=== PATIENT | female | born 1970 | race Caucasian/White ===

== ENCOUNTER 2016-11-08 11:54 | Emergency (ER) | payer OTHER ==
[~2016-11-08] VITALS: Ht 158.8 cm; Wt 129.3 kg
[~2016-11-08 11:54] MED LIST: ACET-171 PO; ARIP5TAB5 PO; CEFT2PIG IV; FUR20 PO; HYOS0.1216 PO; RIVA20TA PO
[2016-11-08 12:11] VITALS: BP 148/79; PULSE 68; O2SAT 97
--- NOTE | 2016-11-08 12:52 | ED.REPORT ---
HPI-Abd Pain F 40 and Over Date of Service Nov 08, 2016 ED Provider: Drake Aguayo MD Patient is a 46 year old female who presents to the ED Complaining of abdominal pain that has been worsening over the past few days. Associated symptoms include severe diarrhea (one month), nausea, weakness, and fatigue. She reports that there was a small amount of blood in her stool the other day but it has since resolved. She denies fever, vomiting, or any other symptoms. She had been taking 2-4 over the counter tablets for diarrhea every 6-8 hours with no relief. Patient is supposed to take potassium supplements but she has not been able to keep food down and therefore cannot take her supplements. She was recently taken off of her blood pressure medication because her potassium was so low ( down to 2 last week). Her medications include Xarelto, ranitidine, lamotrigine, and a dieretic. Nursing Notes Stated Complaint: STOMACH PAIN/WEAK/DIARRHEA Chief Complaint: Female Abdominal Pain Nursing Notes Reviewed: Yes ([employer] not reconciled - EMR indicates Xarelto use in past) Allergies: Coded Allergies: amoxicillin (Verified Allergy, Severe, hives, 11/08/16) Sulfa (Sulfonamide Antibiotics) (Verified Allergy, Intermediate, Hives, ) Scheduled Aripiprazole (Abilify) 5 Mg Tablet 5 MG PO DAILY Ceftriaxone Na/Dextrose,Iso (Ceftriaxone 2 gm-D5w Bag) 2 Gm/50 Ml Piggyback 2 GM IV DAILY Furosemide (Furosemide) 20 Mg Tab 20 MG PO DAILY Potassium Chloride (Potassium Chloride) 20 Meq/15 Ml Liquid 20 MEQ PO DAILY Rivaroxaban (Xarelto) 20 Mg Tablet 20 MG PO DAILY Scheduled PRN Acetaminophen (Acetaminophen) 500 Mg Tablet 1-2 TABLET PO Q6-8H PRN PRN For Pain Hyoscyamine (Hyoscyamine) 0.125 Mg Tablet 0.125 MG PO Q4H PRN PRN Abdominal pain Ondansetron ODT (Ondansetron ODT) 8 Mg Tab.rapdis 8 MG PO Q4H PRN PRN For Nausea General Time Seen by MD: 12:47 Chief Complaint Abdominal pain Hx Obtained From: Patient Arrived By: Walk-in Sudden in Onset?: Yes Onset Occurred: 3 days ago Symptom Duration: Since onset Risk Factors )( AAA Risk Stratification Hypertension Risk factors reviewed Past Medical History Past Medical History 1. Bipolar disorder. 2. Hypertension. 3. Chronic edema. 4. Obesity. 5. Irritable bowel syndrome with chronic diarrhea. 6. Polycystic ovary disease. 7. Chronic low back pain. 8. Factor five Leiden deficiency. Past Surgical History Reports: Cholecystectomy, Hysterectomy Reports: Back/neck surgery Family History noncontributory Smoking History Unknown if Ever Smoker Social History Drug Use: Denies drug use Ambulatory Status Independent Review of Systems Constitutional: Reports: Fatigue, Weakness - generalized, Denies: Fever GI: Reports: Abdominal pain, Diarrhea, Nausea, Denies: Vomiting Complete sys rev & neg: except as marked. Physical Exam Vital Signs Vital Signs (First) Date Time Temp Pulse Resp B/P Pulse Ox O2 Delivery O2 Flow Rate FiO2 11/08/16 12:11 36.3 68 148/79 97 Room Air Initial VS: Reviewed, Vital signs normal Head / Eyes: Atraumatic, Normocephalic Neck: Full range of motion Skin: Warm, Dry Neurologic: Alert, Oriented, Nonfocal Psychiatric: Mood/affect normal, Behavior normal, Normal thought content General/Constitutional: Awake, No acute distress, Well appearing, Well developed Appearance / Presentation: Positive: Obese Fatigued Respiratory / Chest: Atraumatic, Breath sounds NL, Breath sounds = bilat, No respiratory distress Cardiovascular: Heart rate NL, Regular rhythm, Heart sounds NL Abdomen: Soft, Non-tender Back: Inspection NL Interpretation & Diagnostics urine preg neg Lab Results Interpretation Result Diagram: 11/08/16 0122 11/08/16 0122 Test 11/08/16 01:22 11/08/16 13:18 11/08/16 14:07 White Blood Count 7.1th/mm3 (3.8-10.1) Red Blood Count 4.22mil/mm3 (3.90-5.20) Hemoglobin 10.9g/dL (12.0-15.6) Hematocrit 34.5% (35.0-46.0) Mean Corpuscular Volume 81.8fL (81-100) Mean Corpuscular Hemoglobin 25.8pg (27.0-35.0) Mean Corpuscular Hemoglobin Concent 31.6% (32.0-37.0) Red Cell Distribution Width 14.9% (12.3-15.4) Platelet Count 292bil/L (150-400) Neutrophils (%) (Auto) 64.2% (40-74) Lymphocytes (%) (Auto) 26.1% (14-46) Monocytes (%) (Auto) 8.4% (4-12) Eosinophils (%) (Auto) 1.1% (0-5) Basophils (%) (Auto) 0.1% (0-3) Sodium Level 141mEq/L (134-144) Potassium Level 3.1mEq/L (3.5-5.2) Chloride Level 103mEq/L (97-108) Carbon Dioxide Level 26mmol/L (18-29) Blood Urea Nitrogen 10mg/dL (6-24) Creatinine 0.75mg/dL (0.57-1.00) Estimat Glomerular Filtration Rate 119mL/min (>59) Glucose Level 104mg/dL (60-99) Calcium Level 8.5mg/dL (8.5-10.1) Magnesium Level 2.1mg/dL (1.6-2.6) Total Bilirubin 0.3mg/dL (0.0-1.2) Aspartate Amino Transf (AST/SGOT) 44U/L (0-50) Alanine Aminotransferase (ALT/SGPT) 32U/L (0-32) Alkaline Phosphatase 136U/L (25-150) Total Protein 7.4g/dL (6.4-8.4) Albumin 3.5g/dL (3.4-5.0) Lipase 19U/L (13-60) Lactic Acid Level 0.9mmol/L (0.4-2.0) Urine Color Yellow (YELLOW) Urine Appearance Clear (CLEAR,HAZY) Urine pH 6.0 (5.0-8.0) Urine Specific [place] 1.015 (1.003-1.035) Urine Protein Negativemg/dL (NEG,TRACE) Urine Glucose (UA) Negativemg/dL (NEGATIVE) Urine Ketones Negativemg/dL (NEGATIVE) Urine Occult Blood Negative (NEGATIVE) Urine Nitrite Negative (NEGATIVE) Urine Bilirubin Negative (NEGATIVE) Urine Urobilinogen Normalmg/dL (NORMAL) Urine Leukocyte Esterase Negative (NEGATIVE) Urine RBC 0-2/hpf (0-2) Urine WBC 0-5/hpf (0-5) Urine Epithelial Cells Moderate/hpf (NONE-MOD) Urine Crystals None seen (NONE SEEN) Urine Bacteria None/hpf (NONE-FEW) Urine Hyaline Casts None/lpf (NONE) Urine Granular Casts None seen (NONE SEEN) Urine Waxy Casts None seen (NONE SEEN) Urine Red Blood Cell Casts None seen (NONE SEEN) Urine White Blood Cell Casts None seen (NONE SEEN) Urine Mucus None seen (None Seen) Urine Trichomonas None seen (NONE SEEN) Urine Yeast None (NONE SEEN) Urinalysis Comment None Urine Culture Reflexed Not indicated Lab Results Interpretation: CBC normal CMP mildly low potassium, but not severely so Stool panel ordered ECG Interpretation ECG Interpretation: flat t waves anteriorly consistent with hypokalemia sinus rate 60 Time: 13:14 Interpreted by: ED physician Re-Eval/Medical Decision Med Decision/Clinical Course This is a 46-year-old female with chronic IBS and has had chronic problems with diarrhea, reports marked and atypical worsening over the past month. The past week she has had fairly severe near continuous diarrhea despite aggressive loperamide, and she has had ongoing nausea without vomiting. Because of the nausea she has not been able to take the potassium supplements which is often required because she has ongoing GI losses and occasionally gets severely hypokalemic. She reports in recent weeks she had potassium as low as 2, and with her worsening diarrhea, inability to take by mouth, inability to take her potassium and now feeling increasingly weak-she comes in very concerned that she may be severely hypokalemic again. Denies abdominal pain. She denies known diarrheal exposure, no travel history, no recent antibiotic use versus risk factors. She is occasionally have trace amount of blood in the stools, but not currently. She has normal vitals, appears mildly fatigued and mildly dehydrated-there is a soft nontender obese abdomen. She has no clinical signs tonight as or acute surgical process. Her EKG did have flat T waves were any questions about hyperkalemia, with serum levels returned potassium level low, but only 3.1. She received fluids, nausea medicines, and he is improved on reexamination. She was able take by mouth potassium and first a liquid preparation that she was given here. I therefore written for some of the liquid potassium first be able to take at home instead of the pills. I also written for some by mouth ondansetron to help with nausea. She describes as a dramatic worsening of her diarrhea, a stool PCR panel has been ordered but as of this time the patient is not yet provided a stool sample. If she is not able provide a stool sample in the department, the plan is for her to follow up with her PCP on Thursday for outpatient orders. She is advised continue loperamide she has no contraindications for seizures at this time. A definitive for dangerous cause of the diarrhea has not been established. I am not finding any indication for acute imaging, I am not finding indication for empiric antibiotics in this setting. Source of Hx: Old records Re-Evaluation/Progress : Time of Eval: 15:09 )( Re-Eval Abdomen: Non-tender Re-Evaluation/Progress Note: Patient is requesting to go home. Discussed plan to finish IV potassium and discharge. Patient understands and agrees with plan. All questions addressed at this time. Differential Diagnosis: Negative: Abdominal aortic aneurysm, Acute abdominal pain, Bowel obstruction, Ectopic , Gun shot wound abdomen, Myocardial infarction, Pancreatitis, Peptic ulcer disease, Peritonitis, Stab wound abdomen Counseled Regarding: Diagnosis, Lab results, Need for follow-up, When/why to return to ED Discharge & Departure Primary Impression: Diarrhea Additional Impressions: Hypokalemia Dehydration Chronic anticoagulation Disposition: Home Discharge Condition All VS Reviewed: Yes Condition: Stable Additional Instructions: 1. Your potassium today was 3.1. Otherwise her blood tests were normal. 2. Few were able to give a stool sample today, it is been sent that he is usually take 1-2 days for results. Call [phone] for results. If you could not give a stool sample here, follow up Thursday with your doctor to have a sample sent. 3. Drink small frequent sips of fluids and advance diet as tolerated. 4. You can take up to 8 tabs of loperamide daily. 5. You can take ondansetron 8 mg-let dissolve and read tongue-up to every 4 hours as needed for nausea. And it is safe to confine this nausea medicine with other nausea medicines. 6. Review take potassium replacement-you can use the liquid potassium instead of the pills. 7. Return again if new, worsening, or uncontrolled symptoms. Referrals: Lorenza Thorne MD (PCP) Scribe Attestation Portions of this note were transcribed by Lyudmila Griffith. I, Dr. Aguayo personally performed the history, physical exam and medical decision-making; I reviewed and confirmed the accuracy of the information in the transcribed note. Signed by: Lyudmila Griffith 11/08/16, 1510 copies to: Lorenza Thorne MD, Matthew F MD Nov 08, 2016 12:52 LYUDMILA GRIFFITH Nov 08, 2016 13:09
[2016-11-08] MEDS ORDERED: 0.9% Sodium Chloride 1,000 ML IV ONE (12:53)
[2016-11-08] MEDS ORDERED: Ondansetron 2 mg/mL 2 mL Inj IVPUSH ONE (13:10)
[2016-11-08 13:29] LABS: BASOPHILS % (AUTO) 0.1 % (0-3); EOSINOPHILS % (AUTO) 1.1 % (0-5); MONOCYTES % (AUTO) 8.4 % (4-12); Mean Corpuscular Hemoglobin 25.8 pg (27.0-35.0); Mean Corpuscular Volume 81.8 fL (81-100); NEUTROPHILS % (AUTO) 64.2 % (40-74); Platelet Count 292 bil/L (150-400)
[2016-11-08 13:51] LABS: Magnesium 2.1 mg/dL (1.6-2.6)
[2016-11-08] MEDS ORDERED: Potassium Chloride 20 mEq/15 mL 15mL Oral Soln PO ONE (14:05)
[2016-11-08] MEDS ORDERED: Potassium Chloride Inj 20 MEQ in Dextrose 5% 250 ML IV ONE (14:05)
[2016-11-08 14:45] LABS: APPEARANCE,URINE CLEAR (CLEAR,HAZY); COLOR,URINE YELLOW (YELLOW); OCCULT BLOOD,URINE NEGATIVE (NEGATIVE); UROBILINOGEN,URINE NORMAL (NORMAL)
[2016-11-08] MEDS ORDERED: POTA20LI2 PO (15:20)
[2016-11-08] MEDS ORDERED: ONDA8TAB10 PO (15:20)
[2016-11-08 17:15] VITALS: BP 122/50; PULSE 72; O2SAT 98
--- NOTE | 2016-11-10 10:20 | PCM.EDPN ---
ED Note Date of Service Nov 10, 2016 This is simply to note the patient's stool studies have returned positive for C. difficile. The patient has been contacted still having diarrhea. A prescription for 14 day course of metronidazole 500 mg 3 times a day as called in. The patient has a next-day appointment with her PCP currently scheduled otherwise is doing stable. Diagnosis: C Diff Drake Aguayo MD Nov 10, 2016 10:20
[2016-11-10] MEDS ORDERED: METR500T PO (10:23)
== END 2016-11-08 17:07 | disposition home or self-care (01) ==
LOC: SED 11:54
DX: R19.7 Diarrhea, unspecified (principal); E87.6 Hypokalemia; E86.0 Dehydration; R10.9 Unspecified abdominal pain; I10 Essential (primary) hypertension; Z88.1 Allergy status to other antibiotic agents; Z88.2 Allergy status to sulfonamides; Z79.01 Long term (current) use of anticoagulants
CPT/HCPCS: 36415; 80053; 81000; 81025; 83605; 83690; 83735; 85025; 87507; 93005; 96361; 96374; 99285; J2405; J3480; J7030

== ENCOUNTER 2017-02-10 09:40 | Emergency (ER) | payer OTHER ==
[~2017-02-10 09:40] MED LIST changes: +METR500T PO; +ONDA8TAB10 PO; +POTA20LI2 PO
[2017-02-10 09:46] VITALS: BP 184/88; PULSE 79; RESP 20; O2SAT 98
--- NOTE | 2017-02-10 09:57 | ED.REPORT ---
HPI-Neurologic Deficit Date of Service Feb 10, 2017 ED Provider: Juan Pablo Cristina DO 46 year old obese female anticoagulated on Xarelto who is "pre-diabetic" with a history of multiple DVT's presents to the ER complaining of a week of pain with intermittent numbness/tingling of the left shoulder and arm. Associated symptoms include similar pain and numbness of the left neck and face, and headache. Patient denies any recent injury to the affected arm/shoulder, changes in speech, changes in vision, fever, chills, nausea, and vomiting. Symptoms have been treated with ibuprofen and acetaminophen without relief. Upon further questioning she admits to an episode of sharp left chest pain several days ago that resolved on its own. Nursing Notes Stated Complaint: LEFT ARM PAIN,NUMB TINGLING Chief Complaint: Neuro Symptoms/ Deficits Nursing Notes Reviewed: Yes Allergies: Coded Allergies: amoxicillin (Verified Allergy, Severe, hives, 11/08/16) Sulfa (Sulfonamide Antibiotics) (Verified Allergy, Intermediate, Hives, ) Scheduled Aripiprazole (Abilify) 5 Mg Tablet 5 MG PO DAILY Ceftriaxone Na/Dextrose,Iso (Ceftriaxone 2 gm-D5w Bag) 2 Gm/50 Ml Piggyback 2 GM IV DAILY Furosemide (Furosemide) 20 Mg Tab 20 MG PO DAILY Metronidazole (Flagyl) 500 Mg Tablet 500 MG PO TID Potassium Chloride (Potassium Chloride) 20 Meq/15 Ml Liquid 20 MEQ PO DAILY Prednisone (PredniSONE) 50 Mg Tablet 50 MG PO DAILY Rivaroxaban (Xarelto) 20 Mg Tablet 20 MG PO DAILY Scheduled PRN Acetaminophen (Acetaminophen) 500 Mg Tablet 1-2 TABLET PO Q6-8H PRN PRN For Pain Hydrocodone-Acetaminophen 5-325 mg (Hydrocodone-Acetaminophen 5-325 mg) 1 Each Tablet 1 TABLET PO Q4H PRN PRN For Pain Hyoscyamine (Hyoscyamine) 0.125 Mg Tablet 0.125 MG PO Q4H PRN PRN Abdominal pain Naproxen Sodium (Naproxen Sodium) 275 Mg Tablet 275 MG PO BID PRN PRN For Pain Ondansetron ODT (Ondansetron ODT) 8 Mg Tab.rapdis 8 MG PO Q4H PRN PRN For Nausea General Time Seen by Provider: 09:56 Chief Complaint Numbness arm... (Left) Hx Obtained From: Patient Arrived By: Walk-in Sudden in Onset?: No Onset Occurred: 1 week ago Symptom Duration: Since onset Location: : Arm left: Neck Quality: Painful Severity: Current: Moderate Severity: Maximum: Moderate Associated with: Reports: Neck pain Pertinent Negative: Pt denies other symptoms Related History: Denies: CVA/TIA Similar Sx Previous: No Past Medical History Past Medical History 1. Bipolar disorder. 2. Hypertension. 3. Chronic edema. 4. Obesity. 5. Irritable bowel syndrome with chronic diarrhea. 6. Polycystic ovary disease. 7. Chronic low back pain. 8. Factor five Leiden deficiency. Past Surgical History Reports: Cholecystectomy, Hysterectomy Reports: Back/neck surgery Family History noncontributory Smoking History Unknown if Ever Smoker Social History Drug Use: Denies drug use Ambulatory Status Independent Review of Systems Constitutional: Denies: Chills, Fever Eyes: Denies: Blurred bilateral, Visual loss bilateral Respiratory: Denies: Non-productive cough, Shortness of breath Cardiovascular: Reports: Chest pain GI: Denies: Nausea, Vomiting Musculoskeletal: Reports: Extremity pain (Left Arm), Joint pain (Left Shoulder) , Neck pain Neurologic: Reports: Headache, Numbness (Left Shoulder, Arm, Neck/Face), Denies: Slurred speech, Unable to speak, Vision change Complete sys rev & neg: except as marked. Physical Exam Initial Vital Signs Vital Signs (First) Date Time Temp Pulse Resp B/P Pulse Ox O2 Delivery O2 Flow Rate FiO2 02/10/17 09:46 37.2 79 20 184/88 98 Room Air Initial VS: Reviewed Abdomen / GI: Soft, Non-tender, No guarding, No rebound, No distention Skin: Warm, Dry, No cyanosis Psychiatric: Mood/affect normal, Behavior normal, Normal thought content General/Constitutional: Awake, Alert, Well developed, Well nourished Appearance / Presentation: Positive: Obese Head / Eyes: Atraumatic, Normocephalic Respiratory / Chest: Breath sounds NL, Breath sounds = bilat, No respiratory distress, No rales, No rhonchi, No wheezing Cardiovascular: Heart rate NL, Regular rhythm, Heart sounds NL, Peripheral circulation NL Neurologic: Oriented X3, Speech NL, No motor deficits, No sensory deficits, CN II - XII intact Strength 5/5 in all extremities. Neck: Full range of motion, No tracheal deviation Mild left cervical spine tenderness. Upper Extremity / MS: Full range of motion, Neurologic intact, Vascular intact Tenderness along the left biceps. Brisk capillary refill. Lower Extremity / Pelvis / MS: Inspection NL, No swelling, Non-tender, No erythema, No deformity, Neurologic intact, Vascular intact, No edema Interpretation & Diagnostics PROCEDURE: US VENOUS ARM DUPLEX UNILATERAL, LEFT INDICATIONS: pain, swelling, h/o dvt TECHNIQUE: Real-time imaging, as well as color and pulse Doppler interrogation, was performed of the left upper extremity deep veins from the inferior neck to the antecubital fossa. COMPARISON: None. FINDINGS: The internal jugular vein, visualized portions of the subclavian vein , axillary, and brachial veins are free of intraluminal thrombus. Where physically possible, the veins are normally compressible. Color and pulse Doppler demonstrate normal intraluminal flow, with expected phasicity and pulsatility. Additional scanning of the cephalic and basilic veins of the superficial system demonstrate normal compressibility, without thrombus. IMPRESSION: No evidence of deep venous thrombosis. Dictated by: Marshall Mccray M.D. on 02/10/2017 at 12:36 Approved by: Marshall Mccray M.D. on 02/10/2017 at 12:37 Lab Results Interpretation Result Diagram: 02/10/17 1125 02/10/17 1125 Test 02/10/17 10:34 02/10/17 11:17 02/10/17 11:25 02/10/17 11:54 Hold Urine Received (Received) D-Dimer < 0.50mg/L FEU (<0.50) White Blood Count 7.4th/mm3 (3.8-10.1) Red Blood Count 4.49mil/mm3 (3.90-5.20) Hemoglobin 10.9g/dL (12.0-15.6) Hematocrit 34.9% (35.0-46.0) Mean Corpuscular Volume 77.7fL (81-100) Mean Corpuscular Hemoglobin 24.3pg (27.0-35.0) Mean Corpuscular Hemoglobin Concent 31.2% (32.0-37.0) Red Cell Distribution Width 17.6% (12.3-15.4) Platelet Count 327bil/L (150-400) Neutrophils (%) (Auto) 59.0% (40-74) Lymphocytes (%) (Auto) 31.8% (14-46) Monocytes (%) (Auto) 7.2% (4-12) Eosinophils (%) (Auto) 1.6% (0-5) Basophils (%) (Auto) 0.3% (0-3) Sodium Level 137mEq/L (134-144) Potassium Level 3.5mEq/L (3.5-5.2) Chloride Level 99mEq/L (97-108) Carbon Dioxide Level 21mmol/L (18-29) Blood Urea Nitrogen 16mg/dL (6-24) Creatinine 0.87mg/dL (0.57-1.00) Estimat Glomerular Filtration Rate 100mL/min (>59) Glucose Level 120mg/dL (60-99) Calcium Level 9.6mg/dL (8.5-10.1) Magnesium Level 2.0mg/dL (1.6-2.6) Total Bilirubin 0.4mg/dL (0.0-1.2) Aspartate Amino Transf (AST/SGOT) 26U/L (0-50) Alanine Aminotransferase (ALT/SGPT) 21U/L (0-32) Alkaline Phosphatase 115U/L (25-150) Troponin T < 0.010ug/L (0.0-0.011) Total Protein 7.9g/dL (6.4-8.4) Albumin 3.9g/dL (3.4-5.0) Hold Prasad Top Tube Received (Received) ECG Interpretation ECG Interpretation: Sinus rhythm, rate 63 Time: 12:44 Interpreted by: ED physician X-Ray Chest Interpretation Chest Xray Interpretation: IMPRESSION: Stable chest. No acute cardiopulmonary process is suspected. Dictated by: Daniel Mccallum M.D. on 02/10/2017 at 11:04 Approved by: Daniel Mccallum M.D. on 02/10/2017 at 11:05 View: AP & lat Interpretation / Wet Read by: Interpret - Radiologist Re-Eval/Medical Decision Med Decision/Clinical Course Patient presents with diffuse pain down the left arm as well as some intermittent chest pain which is currently resolved and a history of deep vein thrombosis. From a cardiopulmonary standpoint think this is acute coronary syndrome or pulmonary embolism or pneumonia, pericarditis, aortic dissection or aneurysm or any other life-threatening pathology. Upper extremity was ultrasounded and negative for DVT. Her arm is diffusely achy and reproducible on palpation, I do not think that this represents infection and she does not have severe neurologic symptoms to suggests central cord compression. We did discuss the possibility this may represent nerve root compression in the cervical spine and that she will need follow-up with her primary care. She will be discharged on a few days of prednisone to Cefizox with the inflammation and then subsequently naproxen and Vicodin. Return and follow-up precautions given. Source of Hx: Old records Re-Evaluation/Progress #1: Time of Eval: 11:13 Re-Evaluation/Progress Note: Completed physical examination. Discussed physical examination findings and plan to discharge pending US results. Patient is amenable to the plan. Re-Evaluation/Progress #2: Time of Eval: 12:48 Re-Evaluation/Progress Note: Discussed lab, x-ray and US results. Return precautions given. All other questions addressed. Counseled Regarding: Diagnosis, Lab results, Need for follow-up, When/why to return to ED Discharge & Departure Impression: Primary Impression: Arm pain Additional Impression: Neck pain Disposition: Home Discharge Condition All VS Reviewed: Yes Condition: Stable Additional Instructions: Your workup in the ER included an ultrasound of your arm to exclude deep vein thrombosis, a chest x-ray, and EKG, and multiple lab tests. Overall there is no sign of infection, you do not have a blood clot in the arm, you did not have a heart attack, you have a normal chest x-ray. Take prednisone for the next 3 days along with Vicodin as needed for pain. After that use naproxen and Vicodin as needed. You should call your regular doctor today for close follow-up and probable further outpatient imaging of your neck as these maybe eating symptoms from your cervical spine. Return to the ER if you develop a high fever, paralysis or numbness, or other concerns. Referrals: Lorenza Thorne MD (PCP) Martha Attestation Portions of this note were transcribed by Lavelle Self. I, Dr. Cristina, personally performed the history, physical exam and medical decision-making; I reviewed and confirmed the accuracy of the information in the transcribed note. Signed by: Martha Medrano, 02/10/2017 and 12:56 copies to: Thorne, Juan Pablo Guadarrama MD, DO Feb 10, 2017 09:56 LAVELLE SELF Feb 10, 2017 10:50
[2017-02-10] MEDS ORDERED: HYDROcodone-APAP 5-325 mg Tablet PO ONE (11:35)
[2017-02-10 11:38] LABS: BASOPHILS % (AUTO) 0.3 % (0-3); EOSINOPHILS % (AUTO) 1.6 % (0-5); MONOCYTES % (AUTO) 7.2 % (4-12); Mean Corpuscular Hemoglobin 24.3 pg (27.0-35.0); Mean Corpuscular Volume 77.7 fL (81-100); Platelet Count 327 bil/L (150-400)
--- NOTE | 2017-02-10 12:06 | DRSVH ---
PROCEDURE: X-RAY CHEST, TWO VIEWS ([id number]) INDICATIONS: dyspnea TECHNIQUE: 2 views of the chest were acquired. COMPARISON: [facility], CR, XR CHEST 2VW, 12/15/2016, 14:11. FINDINGS: Surgical changes and devices: None. Lungs and pleura: No pleural effusions or pneumothorax. Lungs are clear. Mediastinum: Mediastinal contours are normal. Heart size is normal. Bones and chest wall: No suspicious bony abnormalities. Soft tissues appear unremarkable. IMPRESSION: Stable chest. No acute cardiopulmonary process is suspected. Dictated by: Daniel Mccallum M.D. on 02/10/2017 at 11:04 Approved by: Daniel Mccallum M.D. on 02/10/2017 at 11:05
[2017-02-10 12:10] LABS: TROPONIN T < 0.010 ug/L (0.0-0.011)
--- NOTE | 2017-02-10 12:38 | DRSVH ---
PROCEDURE: US VENOUS ARM DUPLEX UNILATERAL, LEFT INDICATIONS: pain, swelling, h/o dvt TECHNIQUE: Real-time imaging, as well as color and pulse Doppler interrogation, was performed of the left upper extremity deep veins from the inferior neck to the antecubital fossa. COMPARISON: None. FINDINGS: The internal jugular vein, visualized portions of the subclavian vein, axillary, and brach ial veins are free of intraluminal thrombus. Where physically possible, the veins are normally compr essible. Color and pulse Doppler demonstrate normal intraluminal flow, with expected phasicity and p ulsatility. Additional scanning of the cephalic and basilic veins of the superficial system demonstr ate normal compressibility, without thrombus. IMPRESSION: No evidence of deep venous thrombosis. Dictated by: Marshall Mccray M.D. on 02/10/2017 at 12:36 Approved by: Marshall Mccray M.D. on 02/10/2017 at 12:37
[2017-02-10] MEDS ORDERED: PRED50TA PO (12:55)
[2017-02-10] MEDS ORDERED: [UNRECOGNIZED DRUG - CODE] PO (12:55)
[2017-02-10] MEDS ORDERED: HYDR-4003 PO (12:55)
[2017-02-10 13:11] VITALS: BP 128/59; PULSE 65; RESP 16; O2SAT 95
== END 2017-02-10 13:13 | disposition home or self-care (01) ==
LOC: SED 09:40
DX: M79.602 Pain in left arm (principal); M54.2 Cervicalgia; Z79.01 Long term (current) use of anticoagulants; Z88.2 Allergy status to sulfonamides; Z88.1 Allergy status to other antibiotic agents